=== PATIENT | female | born 1935 | race Caucasian/White ===

== ENCOUNTER 2020-05-21 13:10 | Emergency (ER) | payer OTHER ==
[~2020-05-21] VITALS: Ht 152.4 cm; Wt 58.0 kg
[2020-05-21 13:14] VITALS: BP 169/60
--- NOTE | 2020-05-21 13:30 | NUR ---
PT BIB BY SON. PER SON, PT LIVES WITH HIM AND HE CAN NO LONGER TAKE CARE OF HER. STATES THAT SHE REFUSES TO TAKE HER MEDICATIONS AND HE CANNOT LEAVE THE HOUSE, IN FEAR THAT SHE IS GOING TO HURT HERSELF. SON STATES THAT IN THE PAST, HE HAS MADE ARRANGEMENTS FOR PT TO LIVE AT [facility], BUT PT REFUSED TO GO. PT HAS THREATENED SUICIDE IF SON MAKES HER LIVE ANYWHERE ELSE. EMIR AND NOTIFIED. PT DENIES THAT SHE HAS ANY MEMORY LOSS AND STATES THAT SHE IS ABLE TO CARE FOR HERSELF.
--- NOTE | 2020-05-21 13:40 | NUR ---
PT REFUSES FOR VITAL SIGNS TO BE TAKEN OR TO CHANGE IN TO GOWN.
--- NOTE | 2020-05-21 14:09 | NUR ---
DR REYES AND EMIR AT BEDSIDE.
[2020-05-21 15:14] LABS: BASOPHILS % (AUTO) 1 % (0-1); EOSINOPHILS % (AUTO) 1 % (1-7); LYMPHOCYTES % (AUTO) 23 % (22-44); MEAN CORPUSCULAR HEMOGLOBIN 30.4 pg (27.0-34.8); MEAN CORPUSCULAR HGB CONC 34.2 g/dL (32.4-35.8); MEAN PLATELET VOLUME 8.5 fL (7.4-10.4); MONOCYTES % (AUTO) 6 % (2-9); NEUTROPHILS % (AUTO) 70 % (42-75); PLATELET COUNT 263 x10^3/uL (130-400); RED BLOOD COUNT 4.64 x10^6/uL (3.82-5.3); RED CELL DISTRIBUTION WIDTH 13.3 % (9.6-15.2)
[2020-05-21 15:15] LABS: MD NO
[2020-05-21 15:21] LABS: ALBUMIN 3.5 g/dL (3.4-5.0); ANION GAP 9 mmol/L (5-15); CALCIUM 8.9 mg/dL (8.5-10.1); CHLORIDE 104 mmol/L (98-107); SALICYLATE LEVEL < 1.7 mg/dL (2.8-20.0)
--- NOTE | 2020-05-21 15:27 | NUR ---
UA obtained. Pt resting comfortably.
[2020-05-21 15:34] LABS: ALANINE AMINOTRANSFERASE 14 U/L (12-78); ALKALINE PHOSPHATASE 141 U/L (45-117); BILIRUBIN,TOTAL 0.6 mg/dL (0.2-1.0); CREATININE 1.35 mg/dL (0.55-1.02)
--- NOTE | 2020-05-21 15:37 | NUR ---
PT STILL REFUSING VITAL SIGNS
[2020-05-21 15:41] LABS: MICROSCOPIC AUTO
[2020-05-21 15:49] LABS: AMPHETAMINE SCREEN, URINE Negative (Negative); BARBITURATE SCREEN, URINE Negative (Negative); BENZODIAZEPINE SCREEN, URINE Negative (Negative); CANNABINOID SCREEN, URINE Negative (Negative); COCAINE SCREEN, URINE Negative (Negative); METHADONE SCREEN, URINE Negative (Negative); OPIATE SCREEN, URINE Negative (Negative)
--- NOTE | 2020-05-21 16:33 | NUR ---
DC INSTRUCTIONS REVIEWED WITH PT AND SON. ALL QUESTIONS ANSWERED AT THIS TIME.
== END 2020-05-21 16:35 | disposition home or self-care (01) ==
LOC: ED 16:00
DX: N30.00 Acute cystitis without hematuria (principal); F03.90 Unspecified dementia, unspecified severity, without behavioral disturbance, psychotic disturbance, mood disturbance, and anxiety; R94.31 Abnormal electrocardiogram [ECG] [EKG]; I10 Essential (primary) hypertension; E11.65 Type 2 diabetes mellitus with hyperglycemia
CPT/HCPCS: 36415; 80053; 80299; 80307; 80320; 80329; 81001; 84443; 85025; 87086; 93005; 99284; G0480